=== PATIENT | male | born 1960 | race Caucasian/White ===

== ENCOUNTER 2021-10-17 14:56 | Outpatient (CLI) | payer OTHER, SELFPAY ==
--- NOTE | ~2021-10-17 | CT_ITS ---
EXAMINATION: CT chest abdomen pelvis w con DATE: 10/17/2021 15:59 INDICATION: Aortic aneurysm of unspecified site without rupture TECHNIQUE: Transaxial computed tomographic images of the chest, abdomen, and pelvis were obtained aft er the administration of 100 cc of Omnipaque 350 intravenous contrast. The dose-length product (DLP) was 1181.77 mGy-cm. Automated exposure control and iterative reconstruction technique were employed. COMPARISON: None FINDINGS: CHEST CT: There is a 4.3 x 4.2 cm fusiform aneurysm of the ascending aorta measured at the level of the main pu lmonary artery. There is no dissection of the thoracic aorta. The lungs are free of acute opacities. There is no pleural effusion or pneumothorax. No pathologically enlarged thoracic lymph nodes are [place] ntified. The heart size is normal. Calcified pulmonary nodules and calcified bilateral hilar and medi astinal lymph nodes are consistent with old granulomatous disease. There is myocardial thinning in th e left ventricular apex which may reflect prior myocardial infarction. There is moderate thoracic spo ndylosis. ABDOMEN/PELVIS CT: There is no aneurysm or dissection of the abdominal aorta. Minimal calcified atherosclerosis is noted . The celiac axis, superior mesenteric artery, and inferior mesenteric artery are normal at their juan gins. There are two left and one right renal arteries. The liver is diffusely low in attenuation when compared with the spleen, consistent with hepatic steatosis. Punctate calcifications in the liver an d spleen likely represent healed granulomatous disease. The pancreas, gallbladder, and right adrenal gland are normal. There is a multiloculated cystic lesion of the left adrenal gland with thin interna l septations and calcification measuring approximately 5.7 x 5.6 cm. The kidneys are unremarkable. No pathologically enlarged abdominal or pelvic lymph nodes are identified. There is no free intraperito uriel gas or evidence of bowel obstruction. There are bilateral L5 pars defects with grade 2 anterolis thesis of L5 on S1. IMPRESSION: 1. 4.3 cm fusiform aneurysm of the ascending aorta without dissection. 2. Normal abdominal aorta. 3. Adrenal cysts versus cystic lesion of the left adrenal gland. Reviewed, dictated and finalized at location F. ING HOME MANAGER
[2021-10-17 15:53] LABS: Estimated Glomerular Filt Rate > 60
== END 2021-10-17 14:57 | disposition home or self-care (01) ==
LOC: ANHIMG 14:57
PROVIDERS: PCP Family Medicine; Visit Provider Family Medicine
DX: I71.9 Aortic aneurysm of unspecified site, without rupture (principal); E27.8 Other specified disorders of adrenal gland
CPT/HCPCS: 71260; 74177; Q9967

== ENCOUNTER 2022-02-02 07:51 | Outpatient (CLI) | payer OTHER, SELFPAY ==
[2022-02-02 09:03] LABS: Cortisol Random 0.95 ug/dL
== END 2022-02-02 07:52 | disposition home or self-care (01) ==
PROVIDERS: PCP Family Medicine
DX: E27.8 Other specified disorders of adrenal gland (principal)
CPT/HCPCS: 36415; 82533; 83835

== ENCOUNTER 2022-06-05 12:24 | Outpatient (CLI) | payer OTHER, SELFPAY ==
[2022-06-05 13:34] LABS: Hematocrit 46.2 % (42.0-52.0); Hemoglobin 14.7 g/dL (14.0-18.0); Mean Corpuscular HGB Conc 31.8 g/dl (32-36); Mean Corpuscular Hemoglobin 29.5 pg (26-34); Mean Corpuscular Volume 92.6 fl (80-100); Mean Platelet Volume 9.5 fl (7.4-10.4); Platelet Count Result 213 k/mm3 (150-375); Red Blood Count 4.99 M/mm3 (4.6-6.20); Red Cell Distribution Width 13.4 % (11.5-14.5); White Blood Count 5.9 K/mm3 (4.5-10.0)
[2022-06-05 13:40] LABS: Rheumatoid Factor < 8.6 IU/ML (<12)
[2022-06-05 13:41] LABS: Alanine Aminotransferase 24 U/L (6-50); Albumin Level 4.2 g/dL (3.5-5.1); Alkaline Phosphatase 73 U/L (38-126); Anion Gap 9 mmol/L (8-16); Aspartate Amino Transferase 27 U/L (17-59); Bilirubin,Total 0.8 mg/dL (0.2-1.3); Blood Urea Nitrogen 15 mg/dL (9-20); Calcium 9.2 mg/dL (8.4-10.2); Carbon Dioxide 29 mmol/L (22-30); Chloride 102 mmol/L (98-107); Cholesterol 174 mg/dL (0-200); Estimated Glomerular Filt Rate > 60; Glucose 95 mg/dL (65-110); HDL Direct 32 mg/dL; Potassium 4.2 mmol/L (3.4-5.0); Sodium 140 mmol/L (137-145); Triglycerides 119 mg/dL (<150)
[2022-06-05 13:53] LABS: LDL Cholesterol Direct 113 mg/dL
[2022-06-05 14:12] LABS: Prostate Specific Antigen 0.2 ng/mL (< OR = 4.0)
== END 2022-06-05 12:25 | disposition home or self-care (01) ==
PROVIDERS: PCP Family Medicine; Visit Provider Family Medicine
DX: Z00.00 Encounter for general adult medical examination without abnormal findings (principal); M19.90 Unspecified osteoarthritis, unspecified site; E78.5 Hyperlipidemia, unspecified; K21.9 Gastro-esophageal reflux disease without esophagitis; K44.9 Diaphragmatic hernia without obstruction or gangrene; E27.8 Other specified disorders of adrenal gland; Z79.899 Other long term (current) drug therapy; Z12.5 Encounter for screening for malignant neoplasm of prostate; M25.50 Pain in unspecified joint
CPT/HCPCS: 36415; 80053; 80061; 84153; 85027; 86430; G0103

== ENCOUNTER 2023-09-20 09:19 | Outpatient (CLI) | payer OTHER, SELFPAY ==
[2023-09-20 10:04] LABS: Basophils Percent Auto 0.5 % (0.2-1.2); Eosinophils Absolute Auto 0.1 K/mm3 (0-0.3); Eosinophils Percent Auto 1.7 % (0-4.4); Hematocrit 46.5 % (42.0-52.0); Hemoglobin 15.2 g/dL (14.0-18.0); Immature Granulocyte Absolute 0.01 K/mm3 (0.00-0.031); Immature Granulocyte Percent A 0.2 % (0-0.5); Lymphocytes Absolute Auto 1.12 K/mm3 (0.9-3.2); Lymphocytes Percent Auto 17.2 % (18.3-44.2); Mean Corpuscular HGB Conc 32.7 g/dl (32-36); Mean Corpuscular Hemoglobin 29.3 pg (26-34); Mean Corpuscular Volume 89.8 fl (80-100); Mean Platelet Volume 9.2 fl (7.4-10.4); Monocytes Absolute Auto 0.4 K/mm3 (0.1-0.6); Monocytes Percent Auto 6.8 % (2.6-8.5); Neutrophils Absolute Auto 4.8 K/mm3 (1.3-6.7); Neutrophils Percent Auto 73.6 % (45.5-73.1); Platelet Count Result 211 k/mm3 (150-375); Red Blood Count 5.18 M/mm3 (4.6-6.20); Red Cell Distribution Width 13.3 % (11.5-14.5); White Blood Count 6.5 K/mm3 (4.5-10.0)
[2023-09-20 10:45] LABS: Alanine Aminotransferase 24 U/L (6-50); Albumin Level 4.2 g/dL (3.5-5.1); Alkaline Phosphatase 71 U/L (38-126); Anion Gap 7 mmol/L (8-16); Aspartate Amino Transferase 36 U/L (17-59); Bilirubin,Total 1.2 mg/dL (0.2-1.3); Blood Urea Nitrogen 14 mg/dL (9-20); Calcium 9.3 mg/dL (8.4-10.2); Carbon Dioxide 29 mmol/L (22-30); Chloride 103 mmol/L (98-107); Cholesterol 179 mg/dL (0-200); Estimated Glomerular Filt Rate > 60; Glucose 100 mg/dL (65-110); HDL Direct 30 mg/dL; Potassium 4.6 mmol/L (3.4-5.0); Sodium 139 mmol/L (137-145); Triglycerides 132 mg/dL (<150)
[2023-09-20 10:56] LABS: LDL Cholesterol Direct 102 mg/dL
[2023-09-20 11:16] LABS: Prostate Specific Antigen 0.4 ng/mL (< OR = 4.0)
[2023-09-24 14:45] LABS: Testosterone Free 52.3 pg/mL (35.0-155.0); Testosterone Total 356 ng/dL (250-1100)
== END 2023-09-20 09:20 | disposition home or self-care (01) ==
LOC: ANHLAB 09:21
PROVIDERS: PCP Family Medicine; Visit Provider Family Medicine
DX: Z00.00 Encounter for general adult medical examination without abnormal findings (principal); E78.5 Hyperlipidemia, unspecified; K21.9 Gastro-esophageal reflux disease without esophagitis; K44.9 Diaphragmatic hernia without obstruction or gangrene; E66.9 Obesity, unspecified; Z79.899 Other long term (current) drug therapy; Z12.5 Encounter for screening for malignant neoplasm of prostate
CPT/HCPCS: 36415; 80053; 80061; 84153; 84402; 84403; 84443; 85025; G0103

== ENCOUNTER 2023-11-26 13:06 | Outpatient (CLI) | payer OTHER, SELFPAY ==
--- NOTE | ~2023-11-26 | CT_ITS ---
EXAMINATION: CT chest abdomen wo/w con DATE: 11/26/2023 13:55 INDICATION: Aortic aneurysm of unspecified site without rupture. Adrenal mass. TECHNIQUE: Computed tomography (CT) of the chest and abdomen was performed without and with 100 mL Om nipaque 350 intravenous contrast. Automated exposure control and iterative reconstruction technique w ere employed. The dose-length product was 1893.43 mGy-cm. COMPARISON: CT chest, abdomen, and pelvis 10/17/2021 FINDINGS: CHEST CT: The lungs demonstrate mild atelectasis. Calcified pulmonary nodules and calcified hilar and mediastin al lymph nodes are consistent with old granulomatous disease. No pleural effusion. The heart size is normal. There are coronary artery calcifications. No pericardial effusion. The aorta measures 3.8 cm at the sinuses of Valsalva, 3.6 cm at the sinotubular junction, 4.5 cm in the mid ascending aorta, 2. 9 cm at the aortic isthmus, and 3.0 cm in the mid descending aorta. There is mild chronic anterior we dging of multiple thoracic vertebral bodies. There is moderate thoracic spondylosis. ABDOMEN CT: The liver, gallbladder are normal. Calcifications in the spleen are consistent with old granulomatous disease. The pancreas and right adrenal gland are normal. There is a 6.2 cm multilocular cyst with c alcified septations in left adrenal gland. Right kidney is normal. There is cortical thinning of left kidney lower pole. There are no dilated loops of bowel. There is diverticulosis of the colon without evidence of diverticulitis. Abdominal aorta is normal in caliber. There is mild aortic atheroscleros is. There are no pathologically enlarged lymph nodes. There is no free intraperitoneal fluid. There a re chronic bilateral L5 pars defects. There is 12 mm anterolisthesis of L5 on S1. There is severe low er lumbar spondylosis. IMPRESSION: 1. Ectasia of ascending aorta measuring 4.5 cm. 2. Stable 6.2 cm multiloculated cyst with calcified septations in the left adrenal gland, likely britta gn. Reviewed, dictated and finalized at location E. TARY NURSE IMPRESSION: 1. Ectasia of ascending aorta measuring 4.5 cm. 2. Stable 6.2 cm multiloculated cyst with calcified septations in the left adre nal gland, likely benign.
[2023-11-26 13:44] LABS: Estimated Glomerular Filt Rate > 60
== END 2023-11-26 13:07 ==
LOC: MICIMG 13:07
PROVIDERS: PCP Family Medicine; Visit Provider Family Medicine
DX: I71.9 Aortic aneurysm of unspecified site, without rupture (principal); E27.8 Other specified disorders of adrenal gland
CPT/HCPCS: 71270; 74170; Q9967

== ENCOUNTER 2024-04-23 17:22 | Emergency (ER) | payer OTHER, SELFPAY ==
[2024-04-23 17:27] VITALS: BP 145/89; PULSE 63; RESP 16; TEMP 36.6; O2SAT 98
--- NOTE | 2024-04-23 17:57 | ED.EYEPROB ---
HPI - Eye Problem General Chief complaint: Eye Problems Stated complaint: poss pink eye Time Seen by Provider: 04/23/24 17:57 Source: patient, RN notes reviewed and old records reviewed Mode of arrival: ambulatory Limitations: no limitations History of Present Illness HPI Narrative: 63-year-old male to [facility] with complaint bilateral eye irritation and redness, worse on left for 2 days. Patient denies recent illness, fever, headache, visual changes, ear pain, sore throat, seasonal allergies. Patient states that his daughter is a pediatric nurse practitioner and that she recommended he be seen to rule out conjunctivitis. Patient has not attempted to treat at home. Patient in no acute distress. Related Data Home Medications Medication Instructions Recorded Confirmed multivit with minerals-folic tablet PO DAILY 01/11/21 03/11/24 acid-lycopene 0.4 mg-600 mcg tablet (Men's Daily Multivitamin-Mineral) vitamin D3 BYMOUTH 03/10/23 03/11/24 omeprazole 20 mg capsule,delayed 20 mg PO DAILY 03/11/24 03/11/24 release Allergies Allergy/AdvReac Type Severity Reaction Status Date / Time levofloxacin Allergy Unknown Joint Pain Verified 03/11/24 07:42 Quinolones AdvReac Unknown Muscle Verified 03/11/24 07:42 Spasms Review of Systems Review of Systems: All systems reviewed & are unremarkable except as noted in HPI and below Constitutional: Constitutional: Reports no additional constitutional complaints Eyes: Eyes: Reports as per HPI, Denies change in vision, Reports eye discharge ( Bilateral) and Reports irritation ( bilateral) ENT: Reports system reviewed and no additional complaints, except as documented Cardiovascular: Cardiovascular: Reports no additional cardiovascular complaints, Denies chest pain and Denies dyspnea Respiratory: Respiratory: Reports no additional respiratory complaints, Denies cough and Denies dyspnea Musculoskeletal: Musculoskeletal: Reports no additional musculoskeletal complaints Neurologic: Reports system reviewed and no additional complaints, except as documented Psychiatric: Psychiatric: Reports no additional psychiatric complaints [facility] Past Medical History Medical History Arthritis GERD (gastroesophageal reflux disease) Hiatal hernia Torn meniscus Surgical History Surgical History H/O umbilical hernia repair Family History Family History Father Diabetes mellitus Acute myocardial infarction Hypertension Family history of arthritis Mother Diabetes mellitus Family history of atrial fibrillation Gallbladder problem Grandparent Family history of pancreatic cancer Sibling Multiple sclerosis Grandparent Carcinoma of colon Social History Social History Smoking status: Never smoker Second hand tobacco smoke exposure: No Alcohol intake: current Drinks per week: 2 Substance use: never Substance use type: does not use Lack of Transportation: No Lack of Food: Never True Current Housing: I Have Housing Concerned About Future Housing: No Difficulty Paying Gas/Electric Bills: No Difficulty Paying for Meds: No Currently Unemployed: No Education: Master's Degree or Higher Difficulty w/ Childcare or Family Care: No Comments At the time of my signature, I reviewed and agree with the nursing past medical, surgical, social, and family history. There is no relevant family history pertinent to the patient complaint. Exam Const: General: cooperative, healthy appearing, comfortable, no acute distress, alert and well nourished Nutritional Appearance: well nourished Orientation/consciousness: patient oriented x3 Limitations: no limitations HENMT: Head: normal to inspection Ears: external ea
== END 2024-04-23 18:16 | disposition home or self-care (01) ==
PROVIDERS: Emergency Provider Nurse Practitioner Family; PCP Nurse Practitioner Adult Health
DX: H10.9 Unspecified conjunctivitis (principal); M19.90 Unspecified osteoarthritis, unspecified site; K21.9 Gastro-esophageal reflux disease without esophagitis
CPT/HCPCS: 99213; G0463

== ENCOUNTER 2024-06-24 10:06 | Outpatient (CLI) | payer OTHER, SELFPAY ==
--- NOTE | ~2024-06-24 | XR_ITS ---
Clinical Indication: Cough PA and lateral views of the chest: Comparison: None Findings: Probable minimal bibasilar pulmonary edema/atelectasis.. Cardiomediastinal silhouette is w ithin normal limits. Bones and soft tissues are unremarkable. Impression: Probable minimal bibasilar pulmonary edema/atelectasis. Reviewed, dictated and finalized at location . Impression: Probable minimal bibasilar pulmonary edema/atelectasis.
== END 2024-06-24 10:07 | disposition home or self-care (01) ==
LOC: ANHBWCIMG 10:07
PROVIDERS: PCP Nurse Practitioner Adult Health; Visit Provider Nurse Practitioner Adult Health
DX: R05.9 Cough, unspecified (principal)
CPT/HCPCS: 71046

== ENCOUNTER 2025-02-14 14:59 | Outpatient (CLI) | payer OTHER, SELFPAY ==
--- OUTSIDE RECORDS SUMMARY | 2025-02-14 15:04 | XMS_ITS | Clinical Summary ---
Author Organization [facility] Address [address] [place] [address] Phone Care Team Providers Care Heel Coverer Name Role Phone Chucho Tello MD Primary Care Provider [phone] Allergies Active Allergy Reactions Criticality Noted Date Comments Quinolones Other (See Comments) Low 10/25/2012 tendonitis Medications multivitamin tablet Take 1 Tablet by mouth daily. Active CALCIUM CARBONATE-VITAM IN D3 ORAL Take by mouth. Active omeprazole (PriLOSEC) 20 mg Capsule, Delayed Release(E.C.) Take 1 Capsule (20 mg) by mouth daily. 90 Capsule 3 04/01/2023 Active famotidine (PEPCID) 20 mg tablet Take 1 Tablet (20 mg) by mouth 2 times daily. 180 Tablet 3 04/01/2023 Active Active Problems Problem Noted Date Diagnosed Date Gastroesophageal reflux disease without esophagi tis 04/01/2023 History of colon polyps 04/01/2023 Family History Medical History Relation Name Comments Other Mother gallbladder can cer Other Paternal Grandfather pancrea tic cancer Colon Cancer Paternal Grandmother Relation Name Status Comments Mother gallbladder can cer Paternal Grandfather Paternal Grandmother Social History Tobacco Use Types Packs/Day Years Used Date Smoking Tobacco: Never Tobacco Cessation:Counseling Given: Not Answered Alcohol Use Standard Drinks/Week Comments Yes 0 (1 standard drink = 0.6 oz pur e alcohol) occas. Feeling Safe Answer Date Recorded Are you in a relationship wi th someone who hurts you emotionally and/or physically? 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 Gender Identity Not on file Sexual Orientation Choose not to disclose 2023 10:19 PM CDT Last Filed Vital Signs Vital Sign Reading Time Taken Comments Blood Pressure 122/80 03/30/2024 8:58 AM CDT Pulse 78 03/30/2024 8:58 AM CDT Temperature 36.4 C (97.6 F) 05/07/2023 2:08 PM CDT Respiratory Rate 17 05/07/2023 2:18 PM CDT Oxygen Saturation 99% 05/07/2023 2:18 PM CDT Inhaled Oxygen Concentration - - Weight 94.3 kg (208 lb) 03/30/2024 8:58 AM CDT Height 175.3 cm (5' 9 ) 03/30/2024 8:58 AM CDT Body Mass Index 30.72 03/30/2024 8:58 AM CDT Plan of Treatment Health Maintenance Due Date Last Done Comments Pre-Diabetes and Diabetes Screening 1960 FIT-DNA Q 3 years 2003 FIT/FOBT Q 1 year 2003 Flex Sig/CT Colonography Q 5 years 2003 PNEUMOCOCCAL VACCINE 50+ YEA RS (2 of 2 - PPSV23) 02/11/2020 02/10/2019 DTAP/TDAP/TD VACCINES (2 - T d or Tdap) 07/22/2023 07/22/2013, 04/27/2003 INFLUENZA VACCINE (#1) 2024 08/02/2020, 2018 COVID-19 Vaccine ( season) 2024 08/07/2021, 11/24/2020, 10/26/2020 COLORECTAL SCREENING 05/07/2026 05/07/2023, 05/07/20 23 Colorectal Cancer Screening 05/07/2026 RSV VACCINE (60+ or ) (1 - 1-dose 75+ series) 2033 ZOSTER VACCINE Completed 03/15/2019, 12/31/2018 Procedures Procedure Name Priority Date/Time Associated Diagnosis Comments COLONOSCOPY REPORT 05/07/2023 2: 12 PM CDT from Last 3 Months or Most Recently Relevant to Health Maintenance Results * COLONOSCOPY REPORT (05/07/2023 2:12 PM CDT) Narrative Procedure Note Ashli Joyner MD - 05/07/2023 2:12 PM CDT [facility] Patient Name: Ashvin Coffman Procedure Date: 05/07/2023 Date of : 1960 Age: 62 Attending MD: Ashli Joyner MD, Procedure: Colonoscopy Indications: Surveillance: Personal history of colonic polyps (unknown histology) on last colonoscopy more than 5 years ago Providers: Ashli Joyner MD Referring MD: Chucho Tello MD Medicines: Monitored Anesthesia Care Procedure: Informed consent was obtained for the procedure, including moderate sedation after risks were discussed. Based on the pre-procedure assessment, including review of the patient's medical history, medications, allergies, and review of systems, the patient was deemed to be an appropriate candidate for sedation. A timeout was performed. Continuous ECG monitoring, pulse oximetry, blood pressure monitoring, and direct observation were performed. The Colonoscope was introduced through the anus and advanced to the cecum, identified by appendiceal orifice and ileocecal valve. The colonoscopy was performed without difficulty. The patient tolerated the procedure well. The quality of the bowel preparation was adequate to identify polyps greater than 5 mm in size. The quality of the bowel preparation was evaluated using the BBPS ([place] Bowel Preparation Scale) with scores of: Right Colon = 2, Transverse Colon = 2 and Left Colon = 3. The total BBPS score equals 7. The ileocecal valve, appendiceal orifice, and rectum were photographed. Estimated Blood Loss: Estimated blood loss: none. Findings: The perianal and digital rectal examinations were normal. Two sessile polyps were found in the cecum. The polyps were 3 to 5 mm in size. These polyps were removed with a cold snare. Resection and retrieval were complete. Three sessile polyps were found in the ascending colon. The polyps were 2 to 6 mm in size. These polyps were removed with a cold snare. Resection and retrieval were complete. A 4 mm polyp was found in the descending colon. The polyp was sessile. The polyp was removed with a cold snare. Resection and retrieval were complete. A 2 mm polyp was found in the rectum. The polyp was sessile. The polyp was removed with a cold snare. Resection and retrieval were complete. External hemorrhoids were found during retroflexion. The hemorrhoids were small. Complications: No immediate complications. Impression: - Two 3 to 5 mm polyps in the cecum, removed with a cold snare. Resected and retrieved. - Three 2 to 6 mm polyps in the ascending colon, removed with a cold snare. Resected and retrieved. - One 4 mm polyp in the descending colon, removed with a cold snare. Resected and retrieved. - One 2 mm polyp in the rectum, removed with a cold snare. Resected and retrieved. - External hemorrhoids. Recommendation: - Await pathology results. - Repeat colonoscopy in 3 years for surveillance based on pathology results. Ashli Joyner MD 05/07/2023 2:12:26 PM This report has been signed electronically. Number of Addenda: 0 Procedure Date: 05/07/2023 1:19:55 PM [id number] [place] [address] Ashli Joyner MD GI PROCEDURE ORDERABLES Final Re sult from Last 3 Months or Most Recently Relevant to Health Maintenance Insurance [employer] Advance Directives For more information, please contact: [phone] * Full Code (Latest Code Status on File) Date Activated Date Inactivated Comments 05/07/2023 1:04 PM 05/07/2023 4:41 PM Care Teams Heel Coverer Relationship Specialty Start Date End Date Chucho Tello MD PCP - General Family Practice 09/26/22
--- OUTSIDE RECORDS SUMMARY | 2025-02-14 15:04 | XMS_ITS | Referral Summary ---
Author Organization [facility] Address [address] [place] [address] Care Team Providers Care Trimmer Operator Name Role Phone Chucho Tello MD Primary Care Provider [phone] [phone] DigruccSahra maravilla MD PhD Unavailable Allergies Active Allergy Reactions Criticality Noted Date Comments Quinolones Other (See comments) Low 11/26/2018 Tendon issues Medications omeprazole (PriLOSEC) 40 mg capsule 01/28/2022 Active multivitamin capsule Take 1 capsule by mouth daily Active cholecalciferol (VITAMIN D-3) 5,000 unit tablet Active Active Problems Problem Noted Date Diagnosed Date Overweight (BMI 25.0-29.9) 01/30/2022 Elevated BP without diagnosis of hypertension Hiatal hernia 06/25/2012 Social History Tobacco Use Types Packs/Day Years Used Date Smoking Tobacco: Never Tobacco Cessation:Counseling Given: Not Answered Alcohol Use Standard Drinks/Week Comments Yes 0 (1 standard drink = 0.6 oz pur e alcohol) Sex and Gender Information Value Date Recorded Sex Assigned at Not on file 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 Gender Identity Not on file Sexual Orientation Not on file Last Filed Vital Signs Vital Sign Reading Time Taken Comments Blood Pressure 129/83 06/11/2022 8:59 AM CDT Pulse 59 06/11/2022 8:59 AM CDT Temperature 36.3 C (97.4 F) 06/11/2022 8:59 AM CDT Respiratory Rate 16 06/11/2022 8:59 AM CDT Oxygen Saturation 97% 06/11/2022 8:59 AM CDT Inhaled Oxygen Concentration - - Weight 89.9 kg (198 lb 3.2 oz) 06/11/2022 8:59 A M CDT Height 175.3 cm (5' 9 ) 06/11/2022 8:59 AM CDT Body Mass Index 29.27 06/11/2022 8:59 AM CDT Plan of Treatment Not on file Insurance [employer] [id number] [employer] [id number] Care Teams Trimmer Operator Relationship Specialty Start Date End Date Chucho Tello MD PCP - General Family Practice 12/04/21 Sahra Henderson MD PhD Fellow Endocrinology Diabetes & Metabolism 06/12/22
--- OUTSIDE RECORDS SUMMARY | 2025-02-14 15:04 | XMS_ITS | Clinical Summary ---
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 Gender Identity Not on file Sexual Orientation Not on file Plan of Treatment Health Maintenance Due Date Last Done Comments Colorectal Cancer Screening Colonoscopy (10 Years) 1960 Hepatitis C 1976 DTaP, Tdap and Td Vaccines ( 1 - Tdap) 1977 Pneumococcal Vaccine: 50+ Years (2 of 2 - PPSV23) 02/11/2020 02/10/2019 COVID-19 Vaccine (3 - 2023-2 5 season) 2024 11/24/2020, 10/26/2020 RSV Immunization or 60+ Years (1 - 1-dose 75+ series) 2033 Zoster Vaccines Completed 03/15/2019, 12/31/2018 Meningococcal B Vaccine Aged Out No l onger eligible based on patient's age to complete this topic Meningococcal Vaccine Aged Out No cely xander eligible based on patient's age to complete this topic RSV Immunizations Under 20 Months Aged Out No longer eligible b ased on patient's age to complete this topic Insurance [employer] OPEN [facility]
--- OUTSIDE RECORDS SUMMARY | 2025-02-14 15:04 | XMS_ITS | Clinical Summary ---
Author Organization [facility] Address [address] [facility] [place] [address] Care Team Providers Care Outreach Representative Name Role Phone Chucho Tello MD Primary Care Provider [phone] Source Comments [facility],non-owned Affiliates and Associated Physician Practices is amultiple site organization consisting of ambulatory clinics and hospital sitesin [place], [place], [place] and [place]. This disclosure is being madepursuant to the Care Everywhere program and may not contain all information available regarding this patient. Last updated 18.[facility] Allergies Active Allergy Reactions Criticality Noted Date Comments Quinolones Other 11/26/2018 Tendon issues Medications * Be aware that medications may not be up to date on this document. Alwaysverify current medications with the patient. omeprazole (PRILOSEC) 20 MG capsule Take 2 (two) capsules by mouth as needed Active Multiple Vitamin (Daily Vites) TABS Take 1 (one) tablet by mouth once daily Active vitamin D3 (Cholecalcifero l) 25 MCG (1000 UNITS) tablet Take 1 (one) tablet by mouth once daily Active Active Problems Problem Noted Date Diagnosed Date Plantar warts 05/11/2024 Nevus 12/11/2012 Immunizations Immunization Administration Dates Next Due INFLUENZA VACCINE 07/27/2021 INFLUENZA VACCINE, CELL CULT URE, QUADR. (FLUCELVAX QUADRIVALENT; 6MO+) (CCIIV4) 08/02/2020 INFLUENZA VACCINE, QUADR. (F LUZONE; FLULAVAL; FLUARIX; AFLURIA QUADRIVALENT; 6MO+), 0.5 ML (IIV4) 07/19/2019 Pneumococcal Pcv13 Conj 02/10/2019 Zoster Hzv Vacc Recombinant Inj Im 03/15/2019, Family History Medical History Relation Name Comments None Known Brother Other - Cardiac Father ID None Known Maternal Aunt None Known Maternal Grandfather None Known Maternal Grandmother None Known Maternal Uncle Cancer - Other Mother None Known Other None Known Paternal Aunt None Known Paternal Grandfather None Known Paternal Grandmother None Known Paternal Uncle None Known Sister Asthma Neg Hx CVA Neg Hx Cancer - Breast Neg Hx Cancer - Skin, Melanoma Neg Hx Cancer - Skin, Non Melanoma Neg Hx Eczema Neg Hx Hemophilia Neg Hx Psoriasis Neg Hx Relation Name Status Comments Brother Father Maternal Aunt Maternal Grandfather Maternal Grandmother Maternal Uncle Mother Other Paternal Aunt Paternal Grandfather Paternal Grandmother Paternal Uncle Sister Social History Tobacco Use Types Packs/Day Years Used Date Smoking Tobacco: Never Smokeless Tobacco: Never Tobacco Cessation:Counseling Given: Not Answered Alcohol Use Standard Drinks/Week Comments Yes 0 (1 standard drink = 0.6 oz pur e alcohol) OCCASIONALLY Sex and Gender Information Value Date Recorded Sex Assigned at Not on file Legal Sex Male 9:37 AM PROOF READER Gender Identity Not on file Sexual Orientation Not on file Last Filed Vital Signs Vital Sign Reading Time Taken Comments Blood Pressure 140/90 11/26/2018 9:05 AM PROOF READER Pulse 76 11/26/2018 9:05 AM PROOF READER Temperature 36.7 C (98 F) 11/26/2018 9:05 AM PROOF READER Respiratory Rate 18 11/26/2018 9:05 AM PROOF READER Oxygen Saturation 94% 11/26/2018 9:05 AM PROOF READER Inhaled Oxygen Concentration - - Weight 95.1 kg (209 lb 9.6 oz) 11/26/2018 9:05 A M PROOF READER Height 173.4 cm (5' 8.25 ) 11/26/2018 9:05 AM CS T Body Mass Index 31.64 11/26/2018 9:05 AM PROOF READER Plan of Treatment Upcoming Encounters Date Type Department Care Team (Late st Contact Info) Description 04/05/2025 10:20 AM CDT Office Visit [facility] - Dermatology [address] [facility] [place] [phone] Angeli Tyler MD [address] [facility] [place] [address] Health Maintenance Due Date Last Done Comments COLOGUARD (AGES 45-75) - COLON CA SCREENING 1960 CT COLONOGRAPHY - COLON CA SCREENING 1960 FIT - COLON CA SCREENING 1960 FLEX SIG - COLON CA SCREENING 1960 LIPID TESTING 1960 HEPATITIS C SCREENING 09/16/1976 DTAP/TDAP/TD VACCINES (1 - Tdap) 1977 PNEUMOCOCCAL VACCINE 50+ (2 of 2 - PPSV23) 02/11/2020 02/10/2019 COVID-19 VACCINE ( season) 2024 08/07/2021, 11/24/2020, 10/26/2020 DEPRESSION SCREENING 10/06/2024 INFLUENZA VACCINE (Season Ended) 2025 07/27/2021, 08/02/2020, 07/19/2019, Additional history exists COLON MONITORING 10/01/2027 10/01/2017, , 04/29/2012 COLONOSCOPY - COLON CA SCREENING 10/01/2027 10/01/2017, 10/01/2017, 04/29/2012 Colorectal Cancer Screening 10/01/2027 Respiratory Syncytial Virus (RSV) Vaccine Pt: or over 60 yrs (1 - 1-dose 75+ series) 2033 ZOSTER VACCINE Completed 03/15/2019, 12/31/2018 HEPATITIS B VACCINE Aged Out No longe r eligible based on patient's age to complete this topic HIB VACCINE Aged Out No longer eligi ble based on patient's age to complete this topic HPV VACCINE Aged Out No longer eligi ble based on patient's age to complete this topic MENINGOCOCCAL (Group B) VACCINE SHARED DECISION-MAKING Aged Out No longer eligible based on patient's age to complete this topic MENINGOCOCCAL GROUPS A/C/Y/W VACCINE Aged Out No longer eligible based on patient's age to complete this topic Procedures Procedure Name Priority Date/Time Associated Diagnosis Comments ENDOSCOPY, COLON, SCREENING Routine 10/01/2017 10:27 AM PROOF READER from Last 3 Months or Most Recently Relevant to Health Maintenance Results * ENDOSCOPY, COLON, SCREENING (10/01/2017 10:27 AM PROOF READER) Report Endoscopy POC _ Patient Name: Ashvin Coffman Procedure Date: 10/01/2017 10:27 AM Date of : 1960 Admit Type: Outpatient Age: 57 Gender: Male Attending MD: Mehdi Kinney MD _ Procedure: Colonoscopy Indications: Colon cancer screening in patient at increased risk: Family history of colorectal cancer in multiple 2nd degree relatives, High risk colon cancer surveillance: Personal history of colonic polyps Providers: Mehdi Kinney MD (Doctor), Liane Beauchamp RN, Sandra Urena RN Referring MD: Lorne Parr MD (Referring MD) Medicines: Midazolam 8 mg IV, Fentanyl 100 micrograms IV Complications: No immediate complications. _ Procedure: Pre-Anesthesia Assessment: - Prior to the procedure, a History and Physical was performed, and patient medications and allergies were reviewed. The patient is competent. The risks and benefits of the procedure and the sedation options and risks were discussed with the patient. All questions were answered and informed consent was obtained. Patient identification and proposed procedure were verified by the physician and the nurse in the procedure room. Mental Status Examination: alert and oriented. Airway Examination: normal oropharyngeal airway and neck mobility. Respiratory Examination: clear to auscultation. CV Examination: normal. Prophylactic Antibiotics: The patient does not require prophylactic antibiotics. Prior Anticoagulants: The patient has taken no previous anticoagulant or antiplatelet agents. ASA Grade Assessment: II - A patient with mild systemic disease. After reviewing the risks and benefits, the patient was deemed in satisfactory condition to undergo the procedure. The anesthesia plan was to use moderate sedation / analgesia (conscious sedation). Immediately prior to administration of medications, the patient was re-assessed for adequacy to receive sedatives. The heart rate, respiratory rate, oxygen saturations, blood pressure, adequacy of pulmonary ventilation, and response to care were monitored throughout the procedure. The physical status of the patient was re-assessed after the procedure. After I obtained informed consent, the scope was passed under direct vision. Throughout the procedure, the patient's blood pressure, pulse, and oxygen saturations were monitored continuously. The Colonoscope was introduced through the anus and advanced to the cecum, identified by appendiceal orifice and ileocecal valve. The colonoscopy was performed without difficulty. The patient tolerated the procedure well. The quality of the bowel preparation was good. Impression: - The entire examined colon is normal. - The distal rectum and anal verge are normal on retroflexion view. - No specimens collected. Findings: The perianal and digital rectal examinations were normal. Pertinent negatives include normal sphincter tone. The colon (entire examined portion) appeared normal. The retroflexed view of the distal rectum and anal verge was normal and showed no anal or rectal abnormalities. _ Recommendation: - Discharge patient to home (ambulatory). - Continue present medications. - Repeat colonoscopy in 5-10 years for screening purposes. - Return to primary care physician as previously scheduled. Procedure Code(s): --- Professional --- G0105, Colorectal cancer screening; colonoscopy on individual at high risk --- Technical --- G0105, Colorectal cancer screening; colonoscopy on individual at high risk Diagnosis Code(s): --- Professional --- Z80.0, Family history of malignant neoplasm of digestive organs Z86.010, Personal history of colonic polyps --- Technical --- Z80.0, Family history of malignant neoplasm of digestive organs Z86.010, Personal history of colonic polyps CPT copyright 2015 [employer]. All rights reserved. The codes documented in this report are preliminary and upon drywall taper helper review may be revised to meet current compliance requirements. Mehdi Kinney MD 10/01/2017 10:52:19 AM This report has been signed electronically. Number of Addenda: 0 Note Initiated On: 10/01/2017 10:27 AM HC ENDOSCOPY 10/01/2017 10:2 7 AM PROOF READER Mehdi Kinney MD GI PROCEDURE ORDERABLES Edited Result - Final [facility] ENDOSCOPY from Last 3 Months or Most Recently Relevant to Health Maintenance Insurance [employer] Care Teams Outreach Representative Relationship Specialty Start Date End Date Chucho Tello MD [address] [place] [address] PCP - General 11/04/21
--- OUTSIDE RECORDS SUMMARY | 2025-02-14 15:04 | XMS_ITS | Clinical Summary ---
Author Organization [facility] Address [address] [place] [address] Phone Care Team Providers Care Grades 9 Thru 12 Visiting Teacher Name Role Phone Chucho Tello MD Primary Care Provider [phone] Immunizations Immunization Administration Dates Next Due Covid-19, Mrna, Lnp-s, Pf, 1 00 Mcg Or 50 Mcg Dose (MODERNA) 08/07/2021,11/24/2020,10/26/2020 Social History Tobacco Use Types Packs/Day Years Used Date Smoking Tobacco: Never Assessed Sex and Gender Information Value Date Recorded Sex Assigned at Not on file Legal Sex Male 9:29 PM CDT Gender Identity Not on file Sexual Orientation Not on file Plan of Treatment Health Maintenance Due Date Last Done Comments Hepatitis C Virus (HCV) Screening 1960 TdaP Immunization 1960 Colonoscopy 2003 Colorectal Cancer Screening 2003 Cologuard 2008 Immunochemical Fecal Occult Blood 2008 Pneumococcal Immunization (5 0+ years) (2 of 2 - PPSV23) 02/11/2020 02/10/2019 Influenza Immunization (#1) 06/06/202407/07, 08/02/2020, 07/19/2019 SARS-COV-2 Immunization ( season) 2024 08/07/2021, 11/24/2020, 10/26/2020 Respiratory Syncytial Virus (RSV) Immunization (Adult) (1 - 1-dose 75+ series) 2033 Pneumococcal Immunization Combined Discontinued 02/10/2019 Zoster Immunization Completed 03/15/2019, 12/31/2018 Hepatitis B Immunization Aged Out No longer eligible based on patient's age to complete this topic Meningococcal Immunization (ACWY) Aged Out No longer eligible based on patient's age to complete this topic Rotavirus Immunization Aged Out No lo nger eligible based on patient's age to complete this topic Insurance [facility] Care Teams Grades 9 Thru 12 Visiting Teacher Relationship Specialty Start Date End Date Chucho Tello MD [address] [place] [id number] PCP - General Family Medicine 09/23/21
--- OUTSIDE RECORDS SUMMARY | 2025-02-14 15:04 | XMS_ITS | Clinical Summary ---
Author Organization [facility] Address [address] [place] [address] Care Team Providers Care Closet Builder Name Role Phone Chucho Tello MD Primary Care Provider [phone] Sahra Henderson MD PhD Unavailable Allergies Active Allergy Reactions Criticality Noted Date Comments Quinolones Other (See comments) Low 11/26/2018 Tendon issues Medications omeprazole (PriLOSEC) 40 mg capsule 01/28/2022 Active multivitamin capsule Take 1 capsule by mouth daily Active cholecalciferol (VITAMIN D-3) 5,000 unit tablet Active Active Problems Problem Noted Date Diagnosed Date Overweight (BMI 25.0-29.9) 01/30/2022 Elevated BP without diagnosis of hypertension Hiatal hernia 06/25/2012 Family History Medical History Relation Name Comments Hypertension Father Hypertension; Skin cancer Father cancer, skin; DILLAN Father's Brother Skin cancer Father's Brother Pancreatic cancer Maternal Grandfather Ca ncer, pancreas; DILLAN Maternal cousin Brain cancer Maternal cousin Kidney cancer Maternal cousin Heart disease Other 1 Heart Disease - (Added by TW Conv) Diabetes Other 2 Diabetes Mellit us - (Added by TW Conv) Cancer Other 3 Cancer - (Added by TW Conv) Colon cancer Paternal Grandmother Cancer, colon; Diabetes Paternal Grandmother Diabete s mellitus; Relation Name Status Comments Father Father's Brother Maternal Grandfather Maternal cousin Alive Other 1 Other 2 Other 3 Paternal Grandmother Social History Tobacco Use Types Packs/Day Years Used Date Smoking Tobacco: Never Tobacco Cessation:Counseling Given: Not Answered Alcohol Use Standard Drinks/Week Comments Yes 0 (1 standard drink = 0.6 oz pur e alcohol) Sex and Gender Information Value Date Recorded Sex Assigned at Not on file Legal Sex Male 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 Gender Identity Not on file Sexual Orientation Not on file Obstetrics History Last Filed Vital Signs Vital Sign Reading [...] 06/11/2022 8:59 AM CDT Plan of Treatment Health Maintenance Due Date Last Done Comments Colon Cancer Screening-Colonoscopy 1960 Depression Screening 1960 Fall Risk Assessment 1960 Hepatitis C Screening 1960 Prostate Cancer Screening-PSA 1960 Pneumococcal vaccine 65+ (2 of 2 - PPSV23) 02/11/2020 02/10/2019 Well Visit 65+ 2023 Covid-19 Vaccine (4 - 2023-2 5 season) 2024 08/07/2021, 11/24/2020, 10/26/2020 Influenza Vaccine (Season Ended) 2025 07/27/2021, 08/02/2020, 07/19/2019, Additional history exists DTaP/Tdap/Td Vaccine (3 - Td or Tdap) 09/25/2031 09/25/2021, 07/22/2013, 04/27/2003 Hepatitis B Screening Completed 06/18/2004 , 01/17/2004, 12/07/2003 Zoster Vaccine Completed 03/15/2019, 12/31/2018 Insurance [facility] [id number] [facility] [id number] Care Teams Closet Builder Relationship Specialty Start Date End Date Chucho Tello MD PCP - General Family Practice 12/04/21 Sahra Henderson MD PhD Fellow Endocrinology Diabetes & Metabolism 06/12/22
--- OUTSIDE RECORDS SUMMARY | 2025-02-14 15:04 | XMS_ITS | Encounter Summary ---
Author Organization [facility] Address [address] [place] [address] Care Team Providers Care Prescriptionist Name Role Phone Unavailable Primary Care Provider Unavailabl e Encounter Details Date Type Department Care Team (Late st Contact Info) Description 12/18/2020 Flagr Message Enc [facility], [address] [address] [place], [facility] Provider results Social History Tobacco Use Types Packs/Day Years Used Date Smoking Tobacco: Never Assessed Sex and Gender Information Value Date Recorded Sex Assigned at Not on file Legal Sex Male 5:49 PM PRESS MAINTAINER Gender Identity Not on file Sexual Orientation Not on file COVID-19 Exposure Response Date Recorded In the last month, have you been in contact with someone who was confirmed or suspected to have Coronavirus / COVID-19? No / Unsure 12/13/2020 3:51 PM PRESS MAINTAINER documented as of this encounter Plan of Treatment Not on file documented as of this encounter Visit Diagnoses Not on filedocumented in this encounter
[2025-02-14 15:19] LABS: Basophils Percent Auto 0.2 % (0.2-1.2); Eosinophils Absolute Auto 0.1 K/mm3 (0-0.3); Eosinophils Percent Auto 1.9 % (0-4.4); Hematocrit 43.9 % (42.0-52.0); Hemoglobin 14.1 g/dL (14.0-18.0); Immature Granulocyte Absolute 0.01 K/mm3 (0.00-0.031); Immature Granulocyte Percent A 0.2 % (0-0.5); Lymphocytes Absolute Auto 1.36 K/mm3 (0.9-3.2); Lymphocytes Percent Auto 23.6 % (18.3-44.2); Mean Corpuscular HGB Conc 32.1 g/dl (32-36); Mean Corpuscular Hemoglobin 29.6 pg (26-34); Mean Platelet Volume 9.4 fl (7.4-10.4); Monocytes Absolute Auto 0.4 K/mm3 (0.1-0.6); Monocytes Percent Auto 7.5 % (2.6-8.5); Neutrophils Absolute Auto 3.8 K/mm3 (1.3-6.7); Neutrophils Percent Auto 66.6 % (45.5-73.1); Platelet Count Result 189 k/mm3 (150-375); Red Blood Count 4.77 M/mm3 (4.6-6.20); Red Cell Distribution Width 13.3 % (11.5-14.5); White Blood Count 5.8 K/mm3 (4.5-10.0)
[2025-02-14 20:01] LABS: Alanine Aminotransferase 25 U/L (6-50); Albumin Level 4.3 g/dL (3.5-5.1); Alkaline Phosphatase 69 U/L (38-126); Anion Gap 5 mmol/L (4-12); Aspartate Amino Transferase 35 U/L (17-59); Bilirubin,Total 1.3 mg/dL (0.2-1.3); Blood Urea Nitrogen 13 mg/dL (9-20); Calcium 9.3 mg/dL (8.4-10.2); Carbon Dioxide 31 mmol/L (22-30); Chloride 106 mmol/L (98-107); Cholesterol 178 mg/dL (0-200); Estimated Glomerular Filt Rate > 60; Glucose 95 mg/dL (65-110); HDL Direct 30 mg/dL; Potassium 4.4 mmol/L (3.4-5.0); Sodium 142 mmol/L (137-145); Triglycerides 119 mg/dL (<150)
[2025-02-14 20:16] LABS: LDL Cholesterol Direct 102 mg/dL
[2025-02-14 20:31] LABS: Prostate Specific Antigen 0.3 ng/mL (< OR = 4.0)
[2025-02-14 21:11] LABS: Folic Acid > 20.0 ng/mL (2.76->20)
[2025-02-18 08:03] LABS: Testosterone Free 25.4 pg/mL (35.0-155.0); Testosterone Total 224 ng/dL (250-1100)
== END 2025-02-14 15:00 | disposition home or self-care (01) ==
PROVIDERS: PCP Nurse Practitioner Adult Health; Visit Provider Nurse Practitioner Adult Health
DX: Z12.5 Encounter for screening for malignant neoplasm of prostate (principal); Z13.9 Encounter for screening, unspecified; R79.89 Other specified abnormal findings of blood chemistry
CPT/HCPCS: 36415; 80053; 80061; 82607; 82746; 84153; 84402; 84403; 85025; G0103

== ENCOUNTER 2025-02-23 09:52 | Outpatient (CLI) | payer OTHER, SELFPAY ==
--- NOTE | ~2025-02-23 | CT_ITS ---
Clinical Indication: Aortic aneurysm CT Scan of the Chest, Abdomen, and Pelvis with Contrast: Technique: Contiguous sections were acquired throughout the chest, abdomen, and pelvis after intraven ous administration of 100 cc of Omnipaque 350. Dose reduction technique was used on this scan by becky hdez automated exposure control and iterative reconstruction technique. The dose-length product (DL P) was 1462.23 mGy-cm. Comparison: 10/17/2021, 11/26/2023 Findings: There is no evidence of any significant mediastinal, hilar or axillary lymphadenopathy. Calcified sub carinal lymph nodes are present. Ascending aorta measures up to 4.6 cm in diameter. No aortic dissect ion. Aortic arch and descending thoracic aorta are normal in caliber. No large central pulmonary embo emma evident. There is no evidence of pleural or pericardial effusion. The lungs are clear. No pulmonary nodules or infiltrates are noted. The liver, spleen, pancreas, gallbladder, right adrenal and, and kidneys are within normal limits. St able multiloculated cystic mass with calcifications septations in the left adrenal gland, measuring u p to 5.4 cm in maximum diameter. There are atherosclerotic calcifications of the aorta. No abdominal aortic aneurysm or dissection seen. No lymphadenopathy. No bowel obstruction or bowel wall thickening. There is no evidence to suggest acute appendicitis. Urinary bladder is unremarkable. No pelvic mass seen. No ascites. Fat-containing inguinal hernias are present. There are bilateral L5 pars interarticularis defects, with 14 mm anterolisthesis of L5 over S1. Impression: 4.6 cm ascending aortic aneurysm. 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 Bilateral fat-containing inguinal hernias. Bilateral L5 pars interarticularis defects, with 14 mm anterolisthesis of L5 over S1. Reviewed, dictated and finalized at [facility]. Impression: 4.6 cm ascending aortic aneurysm. 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 Bilateral fat-containing inguinal hernias. Bilateral L5 pars interarticularis defects, with 14 mm anterolisthesis of L5 ov er S1.
--- OUTSIDE RECORDS SUMMARY | 2025-02-23 10:32 | XMS_ITS | Clinical Summary ---
Author Organization [facility] Address [address] [place] [address] Care Team Providers Care Vp Emerging Media Name Role Phone Chucho Tello MD Primary Care Provider [phone] Sahra Henderson MD PhD Unavailable Allergies Active [...] on file Legal Sex Male 11:56 PM CAR TESTER Gender Identity Not on file Sexual Orientation [...] 12/07/2003 Zoster Vaccine Completed 03/15/2019, 12/31/2018 Insurance [facility] [id number] [facility] [id number] Care Teams Vp Emerging Media Relationship Specialty Start Date End Date Chucho Tello MD PCP - General Family Practice 12/04/21 Sahra Henderson MD PhD Fellow Endocrinology Diabetes & Metabolism 06/12/22
--- OUTSIDE RECORDS SUMMARY | 2025-02-23 10:32 | XMS_ITS | Referral Summary ---
Author Organization [facility] Address [address] [place] [address] Care Team Providers Care Inspector Health Care Facilities Name Role Phone Chucho Tello MD Primary Care Provider [phone] DigruccSahra maravilla MD PhD Unavailable Allergies Active [...] on file Legal Sex Male 11:56 PM ADOBE BLOCK MAKER Gender Identity Not on file Sexual Orientation [...] Plan of Treatment Not on file Insurance [facility] [id number] [facility] [id number] Care Teams Inspector Health Care Facilities Relationship Specialty Start Date End Date Chucho Tello MD PCP - General Family Practice 12/04/21 Sahra Henderson MD PhD Fellow Endocrinology Diabetes & Metabolism 06/12/22
--- OUTSIDE RECORDS SUMMARY | 2025-02-23 10:32 | XMS_ITS | Clinical Summary ---
Author Organization [facility] Address [address] [facility] [place] [address] Care Team Providers Care Psychiatric Arnp Name Role Phone Chucho Tello MD Primary Care Provider [phone] Source Comments [facility],non-owned Affiliates and Associated Physician Practices is amultiple site organization consisting of ambulatory clinics and hospital sitesin [place], [place], [place] and [place]. This disclosure is being madepursuant to the Care Everywhere program and may not contain all information available regarding this patient. Last updated 18.[facility] Allergies Active Allergy Reactions Criticality Noted Date [...] None Known Brother Other - Cardiac Father [place] None Known Maternal Aunt None Known Maternal [...] on file Legal Sex Male 9:37 AM MANAGER OF CASE Gender Identity Not on file Sexual Orientation Not on file Last Filed Vital Signs Vital Sign Reading Time Taken Comments Blood Pressure 140/90 11/26/2018 9:05 AM MANAGER OF CASE Pulse 76 11/26/2018 9:05 AM MANAGER OF CASE Temperature 36.7 C (98 F) 11/26/2018 9:05 AM MANAGER OF CASE Respiratory Rate 18 11/26/2018 9:05 AM MANAGER OF CASE Oxygen Saturation 94% 11/26/2018 9:05 AM MANAGER OF CASE Inhaled Oxygen Concentration - - Weight 95.1 kg (209 lb 9.6 oz) 11/26/2018 9:05 A M MANAGER OF CASE Height 173.4 cm (5' 8.25 ) 11/26/2018 9:05 AM CS T Body Mass Index 31.64 11/26/2018 9:05 AM MANAGER OF CASE Plan of Treatment Upcoming Encounters Date Type Department Care Team (Late st Contact Info) Description 04/05/2025 10:20 AM CDT Office Visit [facility] - Dermatology [address] [facility] [place] [phone] Angeli Tyler MD [address] [facility] [place] [address] Health Maintenance Due Date Last [...] ENDOSCOPY, COLON, SCREENING Routine 10/01/2017 10:27 AM MANAGER OF CASE from Last 3 Months or Most Recently Relevant to Health Maintenance Results * ENDOSCOPY, COLON, SCREENING (10/01/2017 10:27 AM MANAGER OF CASE) Report Endoscopy POC _ Patient Name: Ashvin [...] history of colonic polyps CPT copyright 2015 [employer]. All rights reserved. The codes documented in this report are preliminary and upon marriage performer review may be revised to meet current compliance requirements. Mehdi Kinney MD 10/01/2017 10:52:19 AM This report has been signed electronically. Number of Addenda: 0 Note Initiated On: 10/01/2017 10:27 AM HC ENDOSCOPY 10/01/2017 10:2 7 AM MANAGER OF CASE Mehdi Kinney MD GI PROCEDURE ORDERABLES Edited Result - Final [facility] ENDOSCOPY from Last 3 Months or Most Recently Relevant to Health Maintenance Insurance [employer] [facility] Address: [facility] [id number] [place] [address] [employer] Care Teams Psychiatric Arnp Relationship Specialty Start Date End Date Chucho Tello MD [address] [place] [address] PCP - General 11/04/21
--- OUTSIDE RECORDS SUMMARY | 2025-02-23 10:32 | XMS_ITS | Clinical Summary ---
Author Organization [facility] Address [address] [place] [address] Phone Care Team Providers Care Car Racer Name Role Phone Chucho Tello MD Primary Care Provider [phone] Immunizations Immunization Administration Dates Next Due Covid-19, [...] patient's age to complete this topic Insurance [facility] Care Teams Car Racer Relationship Specialty Start Date End Date Chucho Tello MD [address] [place] [id number] PCP - General Family Medicine 09/23/21
--- OUTSIDE RECORDS SUMMARY | 2025-02-23 10:32 | XMS_ITS | Clinical Summary ---
Author Organization [facility] Address [address] [place] [address] Phone Care Team Providers Care Transmission Technician Name Role Phone Chucho Tello MD Primary Care Provider [phone] Allergies Active Allergy Reactions Criticality Noted Date [...] on file Legal Sex Male 8:07 AM CO PILOT Gender Identity Not on file Sexual Orientation [...] Joyner MD - 05/07/2023 2:12 PM CDT [facility] Patient Name: Ashvin Coffman Procedure Date: [...] preparation was evaluated using the BBPS ([place] Bowel Preparation Scale) with scores of: Right [...] Addenda: 0 Procedure Date: 05/07/2023 1:19:55 PM [address] [place] [address] Ashli Joyner MD GI PROCEDURE ORDERABLES Final Re sult from Last 3 Months or Most Recently Relevant to Health Maintenance Insurance [employer] Advance Directives For more information, please contact: [phone] * Full Code (Latest Code Status on File) Date Activated Date Inactivated Comments 05/07/2023 1:04 PM 05/07/2023 4:41 PM Care Teams Transmission Technician Relationship Specialty Start Date End Date Chucho Tello MD PCP - General Family Practice 09/26/22
== END 2025-02-23 09:53 | disposition home or self-care (01) ==
PROVIDERS: PCP Nurse Practitioner Adult Health; Visit Provider Nurse Practitioner Adult Health
DX: I71.21 Aneurysm of the ascending aorta, without rupture (principal); E27.8 Other specified disorders of adrenal gland; K40.20 Bilateral inguinal hernia, without obstruction or gangrene, not specified as recurrent; M47.897 Other spondylosis, lumbosacral region
CPT/HCPCS: 71260; 74177; Q9967